=== PATIENT | female | born 1945 | race Caucasian/White ===

== ENCOUNTER 2020-07-26 09:12 | Emergency (ER) | payer OTHER, MEDICARE ==
[~2020-07-26] VITALS: Ht 157.5 cm; Wt 59.0 kg
[2020-07-26] MEDS ORDERED: CALCIUM CIT 311 EACH (10:34)
[2020-07-26] MEDS ORDERED: ATOR20 PO (10:34)
[2020-07-26] MEDS ORDERED: BUPR75 PO (10:35)
[2020-07-26] MEDS ORDERED: METO25 PO (10:35)
== END 2020-07-26 11:33 | disposition home or self-care (01) ==
LOC: EDBD 09:12 → ER 09:12
DX: Z00.00 Encounter for general adult medical examination without abnormal findings (principal)
CPT/HCPCS: 99284

== ENCOUNTER 2020-10-05 01:54 | Day surgery (SDC) | payer OTHER ==
[~2020-10-05 01:54] MED LIST: ATOR20 PO; BUPR75 PO; CALCIUM CIT 311 EACH; METO25 PO
== END 2020-10-05 18:12 | disposition home or self-care (01) ==
LOC: ATC 01:54
DX: U07.1 COVID-19 (principal); I10 Essential (primary) hypertension; F03.90 Unspecified dementia, unspecified severity, without behavioral disturbance, psychotic disturbance, mood disturbance, and anxiety; E78.49 Other hyperlipidemia; Z87.891 Personal history of nicotine dependence; Z88.2 Allergy status to sulfonamides; Z88.8 Allergy status to other drugs, medicaments and biological substances
CPT/HCPCS: 96365; Q0243

== ENCOUNTER 2021-01-09 07:57 | Emergency (ER) | payer OTHER ==
[~2021-01-09] VITALS: Ht 154.9 cm; Wt 59.0 kg
[2021-01-09 09:05] LABS: Source, Urine Clean Catch
[2021-01-09 09:07] LABS: BASOPHILS ABSOLUTE AUTO 0.05 K/mm3 (0.00-0.23); BASOPHILS PERCENT AUTO 1 % (0-2); EOSINOPHILS ABSOLUTE AUTO 0.11 K/mm3 (0.00-0.68); EOSINOPHILS PERCENT AUTO 2 % (0-6); Hematocrit 36.5 % (33.0-51.0); Hemoglobin 11.6 g/dL (11.5-16.0); IMMATURE GRAN ABSOLUTE AUTO 0.02 K/mm3 (0.00-0.10); IMMATURE GRAN PERCENT AUTO 0 % (0-1); LYMPHOCYTES ABSOLUTE AUTO 1.54 K/mm3 (0.84-5.20); LYMPHOCYTES PERCENT AUTO 22 % (21-46); MONOCYTES ABSOLUTE AUTO 0.54 K/mm3 (0.16-1.47); MONOCYTES PERCENT AUTO 8 % (4-13); Mean Corpuscular HGB 29.7 pg (26.0-34.0); Mean Corpuscular HGB Conc 31.8 g/dL (31.5-36.5); Mean Corpuscular Volume 94 fL (80-100); Mean Platelet Volume 10.2 fL (9.1-12.4); NEUTROPHILS ABSOLUTE AUTO 4.69 K/mm3 (1.96-9.15); NEUTROPHILS PERCENT AUTO 67 % (41-73); Platelet Count 162 K/mm3 (150-400); RDW Standard Deviation 44.5 fL (35.1-46.3); White Blood Cell Count 6.95 K/mm3 (4.00-11.30)
[2021-01-09 09:18] LABS: Appearance, Urine Clear (Clear); Bilirubin, Urine Neg (Neg); Blood, Urine 3+ (Neg); Color, Urine Yellow (P-Yellow); Glucose Qualitative, Urine Neg (Neg); Ketones, Urine Neg (Neg); Leukocyte Esterase, Urine 1+ (Neg); Nitrite, Urine Neg (Neg); Protein, Urine Neg (Neg); Urobilinogen, Urine NORM (Normal)
[2021-01-09 09:33] LABS: Alanine Aminotransfer (ALT/SGP 23 U/L (12-78); Albumin, Blood 2.9 g/dL (3.4-5.0); Albumin/Globulin Ratio 0.8 (0.8-1.8); Alk Phos 77 U/L (50-136); Anion Gap 3 mmol/L (6-16); Aspartate Aminotrans (AST/SGOT 23 U/L (12-37); Bilirubin, Total 0.5 mg/dL (0.1-1.0); Blood Urea Nitrogen 16 mg/dL (8-24); Bun/Creatinine Ratio 15.4 (12.0-20.0); CO2, Blood 29 mmol/L (21-32); Calcium, Blood 8.6 mg/dL (8.5-10.1); Chloride, Blood 106 mmol/L (98-108); Creatinine, Blood 1.04 mg/dL (0.40-1.00); Ethanol (Alcohol), Blood, Med <3 mg/dL; Globulin, Blood 3.6 g/dL (2.2-4.0); Glomerular Filtration Rate 51 (60-); Glucose, Blood 92 mg/dL (70-99); Potassium, Blood 4.5 mmol/L (3.5-5.5); Salicylate <1.7 mg/dL (2.8-20.0); Sodium, Blood 138 mmol/L (136-145); Total Protein, Blood 6.5 g/dL (6.4-8.2)
[2021-01-09 09:34] LABS: Red Blood Cells, Urine 0-2 /hpf (0-2)
[2021-01-09 09:35] LABS: Bacteria Many /hpf; Squamous Epithelial Cells Rare /hpf (Few)
[2021-01-09 09:36] LABS: U Amphetamine Screen Not Detected; U Barbituate Screen Not Detected; U Benzodiazapine Screen Not Detected; U Buprenorphine Screen Not Detected; U Cannabinoids Screen Not Detected; U Cocaine Screen Not Detected; U Methadone Screen Not Detected; U Methamphetamine Screen Not Detected; U Opiates Screen Not Detected; U Oxycodone Screen Not Detected; U Phencyclidine Screen Not Detected; U Propoxyphene Screen Not Detected
[2021-01-09 09:45] LABS: Acetaminophen, Random <2.0 ug/mL (10.0-30.0)
[2021-01-09] MEDS ORDERED: TRAZ50 PO ×2 (14:39→14:41)
== END 2021-01-09 14:50 | disposition home or self-care (01) ==
LOC: ER 07:57
PROVIDERS: Physician Assistant
DX: R45.1 Restlessness and agitation (principal); I10 Essential (primary) hypertension; F17.200 Nicotine dependence, unspecified, uncomplicated; Z88.8 Allergy status to other drugs, medicaments and biological substances; Z79.899 Other long term (current) drug therapy
CPT/HCPCS: 36415; 80053; 81001; 81025; 85025; 87077; 87086; 87186; 99284; A9270; G0480

== ENCOUNTER 2021-01-16 18:32 | Emergency (ER) | payer OTHER ==
[~2021-01-16] VITALS: Ht 157.5 cm; Wt 60.8 kg
[~2021-01-16 18:32] MED LIST changes: +CEFD300 PO; +TRAZ50 PO
[2021-01-16] MEDS ORDERED: MELATONIN5 M1 PO (19:43)
== END 2021-01-16 23:39 | disposition home or self-care (01) ==
LOC: ER 18:32
DX: Z00.8 Encounter for other general examination (principal); Z88.8 Allergy status to other drugs, medicaments and biological substances; Z79.899 Other long term (current) drug therapy
CPT/HCPCS: 99282

== ENCOUNTER 2021-01-23 04:36 | Inpatient (IN) | payer OTHER ==
[~2021-01-23] VITALS: Ht 160 cm; Wt 60.3 kg
[~2021-01-23 04:36] MED LIST changes: +MELATONIN5 M1 PO
[2021-01-23 05:13] LABS: BASOPHILS ABSOLUTE AUTO 0.02 K/mm3 (0.00-0.23); BASOPHILS PERCENT AUTO 0 % (0-2); EOSINOPHILS ABSOLUTE AUTO 0.01 K/mm3 (0.00-0.68); EOSINOPHILS PERCENT AUTO 0 % (0-6); Hematocrit 34.3 % (33.0-51.0); Hemoglobin 11.1 g/dL (11.5-16.0); IMMATURE GRAN ABSOLUTE AUTO 0.01 K/mm3 (0.00-0.10); IMMATURE GRAN PERCENT AUTO 0 % (0-1); LYMPHOCYTES ABSOLUTE AUTO 1.56 K/mm3 (0.84-5.20); LYMPHOCYTES PERCENT AUTO 24 % (21-46); MONOCYTES ABSOLUTE AUTO 0.26 K/mm3 (0.16-1.47); MONOCYTES PERCENT AUTO 4 % (4-13); Mean Corpuscular HGB 30.1 pg (26.0-34.0); Mean Corpuscular HGB Conc 32.4 g/dL (31.5-36.5); Mean Corpuscular Volume 93 fL (80-100); NEUTROPHILS ABSOLUTE AUTO 4.79 K/mm3 (1.96-9.15); NEUTROPHILS PERCENT AUTO 72 % (41-73); Platelet Count 155 K/mm3 (150-400); RDW Coefficient Variation 12.6 % (11.7-14.2); RDW Standard Deviation 43.7 fL (35.1-46.3); Red Blood Cell Count 3.69 M/mm3 (3.80-5.20); White Blood Cell Count 6.65 K/mm3 (4.00-11.30)
[2021-01-23 05:58] LABS: Alanine Aminotransfer (ALT/SGP 19 U/L (12-78); Albumin, Blood 2.8 g/dL (3.4-5.0); Albumin/Globulin Ratio 0.8 (0.8-1.8); Alk Phos 69 U/L (50-136); Anion Gap 10 mmol/L (6-16); Aspartate Aminotrans (AST/SGOT 29 U/L (12-37); Bilirubin, Total 0.7 mg/dL (0.1-1.0); Blood Urea Nitrogen 16 mg/dL (8-24); Bun/Creatinine Ratio 33.4 (12.0-20.0); CO2, Blood 22 mmol/L (21-32); Calcium, Blood 8.4 mg/dL (8.5-10.1); Chloride, Blood 104 mmol/L (98-108); Creatinine, Blood 0.48 mg/dL (0.40-1.00); Globulin, Blood 3.5 g/dL (2.2-4.0); Glomerular Filtration Rate >60 (60-); Glucose, Blood 157 mg/dL (70-99); Sodium, Blood 136 mmol/L (136-145); Total Protein, Blood 6.3 g/dL (6.4-8.2)
[2021-01-23] MEDS ORDERED: ASPI81CH PO (06:09)
[2021-01-23 09:14] LABS: Salicylate <1.7 mg/dL (2.8-20.0)
[2021-01-23 09:19] LABS: Acetaminophen, Random 540.5 ug/mL (10.0-30.0)
[2021-01-23 11:44] LABS: Influenza A, PCR NEGATIVE (NEGATIVE); Influenza B, PCR NEGATIVE (NEGATIVE); Resp Syncytial Virus, PCR NEGATIVE (NEGATIVE); SARS-Cov-2 (COVID-19) PCR, MMC NEGATIVE (NEGATIVE)
[2021-01-23 12:47] LABS: U Amphetamine Screen Not Detected; U Barbituate Screen Not Detected; U Benzodiazapine Screen Not Detected; U Buprenorphine Screen Not Detected; U Cannabinoids Screen Not Detected; U Cocaine Screen Not Detected; U Methadone Screen Not Detected; U Methamphetamine Screen Not Detected; U Opiates Screen Not Detected; U Oxycodone Screen Not Detected; U Phencyclidine Screen Not Detected; U Propoxyphene Screen Not Detected
--- NOTE | 2021-01-23 17:08 | NUR ---
PATIENT ADMIT TO PCU. ABLE TO STAND AND TRANSFER WITH ONE PERSON ASSIST. DENIES NUMBNESS/TINGLING. ABLE TO STATE NAME AND BIRTHDATE. STATES SHE IS IN "[facility]" AND UNSURE WHY. VERY CALM AND COOPERATIVE. BED ALARM AND CAMERA ON. TELE SHOWING SINUS GAIL WITH HR 47-50'S. DENIES SYMPTOMS OF DIZZINESS/LIGHTHEADED. DENIES CHEST PAIN/PRESSURE. BP STABLE. ON ROOM AIR SATING MID 90'S. DENIES SOB. LUNGS SOUNDING CLEAR. USING BSC WITH ONE PERSON ASSIST. CALLING TO USE RESTROOM. MODERATE SI PRECAUTIONS IN PLACE. ABLE TO MOVE SELF IN BED. ACETYLCYSTEINE, NS, POTASSIUM, AND MAG INFUSING. SPOKE WITH POISON CONTROL. GOAL TO KEEP K ABOVE 4.0 AND MAG ABOVE 2.0. POISON CONTROL WANTING EKG ONCE K AND MAG ARE DONE INFUSING. POISON CONTROL ALSO WANTING LABS FOR AST, ALT, ACETAMINOPHEN, AND INR DRAWN WHEN 2 HOURS OF CURRENT ACETYLCYSTEINE BAG IS LEFT. NPO AT THIS TIME. CALL LIGHT IN REACH. WILL CONTINUE TO MONITOR AND REPORT OFF.
--- NOTE | 2021-01-23 18:41 | NUR ---
UPDATE: NO ACUTE CHANGES. MAG INFUSED. PATIENT USING CALL LIGHT TO USE RESTROOM. BSC WITH 1 PERSON ASSIST. REMAINS ON RA. TELE REMAINS SINUS GAIL. OBSERVED PATIENT FLICKING LEFT WRIST AND HAND OVER AND OVER AGAIN, WHEN NO ONE IS IN ROOM. UPON QUESTIONING PATIENT STATES "IT IS HOW SHE COUNTS HER STEPS". DENIES PAIN/DIZZINESS. CALL LIGHT IN REACH.
--- NOTE | 2021-01-23 22:58 | NUR ---
PT CONTINUES TO GET OOB WITHOUT ASSIST WITH MULTIPLE IV LINES, CONFUSED AND THINKS SHE IS HOME. REORIENTED MULTIPLE TIMES BUT PT HAS NO RETENTION. BED ALARMING EVERY FIVE MINUTES AND PT OOB BEFORE REMOTE MONITOR CAN CALL FLOOR STAFF. CALL TO HOSPITALIST TO REQUEST VEST RESTRAINT, BUT AFTER IT WAS APPLIED PT NOTED TO BE STRUGGLING DOWN TO FOOT OF BED WITH RESTRAINT UP AROUND HER ARMPIT AND NECK, NAUSEAOUS AND HAD SMALL EMESIS. VEST RESTRAINT REMOVED. REQUESTED SITTER FROM CN PT IS AT HIGH RISK FOR SELF INJURY DUE TO INABILITY TO FOLLOW SAFETY GUIDELINES. CALISTA RAINES
[2021-01-23 23:25] LABS: Acetaminophen, Random 82.2 ug/mL (10.0-30.0); Alanine Aminotransfer (ALT/SGP 31 U/L (12-78); Albumin, Blood 2.9 g/dL (3.4-5.0); Albumin/Globulin Ratio 0.8 (0.8-1.8); Alk Phos 70 U/L (50-136); Anion Gap 12 mmol/L (6-16); Aspartate Aminotrans (AST/SGOT 33 U/L (12-37); Bilirubin, Total 0.9 mg/dL (0.1-1.0); Blood Urea Nitrogen 11 mg/dL (8-24); Bun/Creatinine Ratio 14.3 (12.0-20.0); CO2, Blood 19 mmol/L (21-32); Calcium, Blood 7.5 mg/dL (8.5-10.1); Chloride, Blood 106 mmol/L (98-108); Creatinine, Blood 0.77 mg/dL (0.40-1.00); Globulin, Blood 3.6 g/dL (2.2-4.0); Glomerular Filtration Rate >60 (60-); Glucose, Blood 146 mg/dL (70-99); Potassium, Blood 3.3 mmol/L (3.5-5.5); Sodium, Blood 137 mmol/L (136-145); Total Protein, Blood 6.5 g/dL (6.4-8.2)
--- NOTE | 2021-01-24 05:23 | NUR ---
SHIFT SUMMARY: PT RESTLESS ALL NIGHT, SITTER AT BEDSIDE PT CONTINUOUSLY TRYING TO GET OOB, CONFUSED AND DISORIENTED, REDIRECTS EASILY BUT RETENTION VERY SHORT. CONT BOWEL AND BLADDER, UP TO BSC TO VOID, + BM, VSS, TELE SHOWS SB/SR WITH STABLE VS. DENIES SUICIAL THOUGHTS, FOLLOW SIMPLE ONE STEP COMMANDS BUT UNABLE TO COMPLETE/COMPREHEND MORE COMPLEX DIRECTION. ACETYLCYSTEINE IV CONTINUES, AM LABS PENDING BUT ACETAMINIPHEN LEVEL TRENDING DOWN. PT HAS HAD 2 SMALL EMESIS OF BROWN GASTRIC CONTENTS, RELIEVED BY IV ZOFRAN. TELE SHOWS SR. SPOKE WITH POISON CONTROL TWICE THIS SHIFT AND UPDATED ON PT CONDITION. BED LOCKED AND LOW, CALL GROVES IN REACH, SITTER AT BEDSIDE FOR PT SAFETY. CALISTA RAINES
[2021-01-24 05:30] LABS: Hematocrit 36.4 % (33.0-51.0); Hemoglobin 12.4 g/dL (11.5-16.0); Mean Corpuscular HGB Conc 34.1 g/dL (31.5-36.5); Mean Corpuscular Volume 88 fL (80-100); Mean Platelet Volume 11.1 fL (9.1-12.4); Platelet Count 142 K/mm3 (150-400); RDW Coefficient Variation 12.5 % (11.7-14.2); RDW Standard Deviation 40.5 fL (35.1-46.3); Red Blood Cell Count 4.13 M/mm3 (3.80-5.20); White Blood Cell Count 15.76 K/mm3 (4.00-11.30)
[2021-01-24 05:47] LABS: Alanine Aminotransfer (ALT/SGP 33 U/L (12-78); Albumin, Blood 2.8 g/dL (3.4-5.0); Albumin/Globulin Ratio 0.8 (0.8-1.8); Alk Phos 67 U/L (50-136); Anion Gap 10 mmol/L (6-16); Aspartate Aminotrans (AST/SGOT 35 U/L (12-37); Blood Urea Nitrogen 9 mg/dL (8-24); Bun/Creatinine Ratio 11.4 (12.0-20.0); CO2, Blood 20 mmol/L (21-32); Calcium, Blood 7.7 mg/dL (8.5-10.1); Chloride, Blood 105 mmol/L (98-108); Creatinine, Blood 0.79 mg/dL (0.40-1.00); Globulin, Blood 3.6 g/dL (2.2-4.0); Glomerular Filtration Rate >60 (60-); Glucose, Blood 132 mg/dL (70-99); Potassium, Blood 3.2 mmol/L (3.5-5.5); Sodium, Blood 135 mmol/L (136-145); Total Protein, Blood 6.4 g/dL (6.4-8.2)
--- NOTE | 2021-01-24 12:09 | NUR ---
ATTEMPTED TO OBTAIN URINE SAMPLE VIA STRAIGHT CATH, PER DR. GARG OKAY. WHEN TRYING TO OBTAIN PATIENT URINATED PRIOR TO INSERTING CATH. WILL ATTEMPT AGAIN IN A LITTLE BIT. TEMP 100.8 AT THIS TIME. THIS RN NOTICED REDNESS/WARM ON BACK OF LEFT ARM THIS AM. DR. GARG NOTIFIED AND IN TO ASSESS. NEW ORDERS FOR ANTIBIOTICS. MAG, POTASSIUM, NS AND ACETYLCYSTEINE INFUSING AT THIS TIME. SANJEEV VEST IN PLACE. CAMERA AND BED ALARM ON. WILL CONTINUE TO MONITOR.
[2021-01-24 13:55] LABS: International Normalized Ratio 1.31; Prothrombin Time Results 13.5 Sec (9.7-11.5)
--- NOTE | 2021-01-24 14:14 | NUR ---
PATIENT ONLY ALERT TO SELF. NOT ABLE TO ANSWER ANY ORIENTING QUESTIONS CORRECTLY. DENIES NUMBNESS/TINGLING. ABLE TO MOVE ALL EXTREMITIES. AT TIMES TRYING TO GET OUT OF BED. BED ALARM AND CAMERA ON. SANJEEV VEST IN PLACE. TURNING SELF IN BED. USING BEDSIDE COMMODE WITH 1-2 PERSON ASSIST. ATTENDS IN PLACE FOR INCONTINENT EPISODES. DENIES ABDOMINAL PAIN. ON ROOM AIR. TELE SHOWING SINUS RHYTHM WITH HR 80-90'S. DENIES CHEST PAIN/PRESSURE. BP STABLE. TEMP ELEVATED THIS AFTERNOON. BLANKETS AND TEMP IN ROOM TURNED DOWN. ACETYLCYSTEINE AND NS INFUSING IN LEFT IV. POTASSIUM, MAG AND ANCEF INFUSED IN LEFT AC IV. LEFT TRICEP REGION NOTED TO BE WARM AND RED THIS AM. DR. BRYANTRATE IN TO ASSESS. PATIENT EATING LUNCH AT THIS TIME. NEEDING ASSISTANCE WITH EATING. TOLERTING FOOD WELL. MOTTLING NOTED TO BILATERAL KNEES AND THIGH REGION. PATIENT DENIES PAINS OVERALL. UPDATING POISON CONTROL NEEDED. PLAN FOR EKG WHEN POTASSIUM IS DONE INFUSING PER POISON CONTROL RECOMMENDATIONS. CHEST XRAY TODAY. CALL LIGHT IN REACH. WILL CONTINUE TO MONITOR.
[2021-01-24 14:53] LABS: Source, Urine Clean Catch
[2021-01-24 14:57] LABS: Appearance, Urine Clear (Clear); Bilirubin, Urine Neg (Neg); Blood, Urine 5+ (Neg); Glucose Qualitative, Urine Neg (Neg); Ketones, Urine 2+ (Neg); Leukocyte Esterase, Urine Neg (Neg); Nitrite, Urine Neg (Neg); Protein, Urine 3+ (Neg); Specific Gravity, Urine 1.015 (1.003-1.022); Urobilinogen, Urine NORM (Normal)
[2021-01-24 15:16] LABS: Color, Urine Pale Yellow (P-Yellow)
[2021-01-24 15:18] LABS: Bacteria Mod /hpf; Squamous Epithelial Cells Rare /hpf (Few); White Blood Cells, Urine 0-2 /hpf (0-5)
[2021-01-24 15:20] LABS: Granular Casts Rare /lpf (0)
--- NOTE | 2021-01-24 17:44 | NUR ---
SHIFT SUMMARY: PATIENT REMAINS ONLY ALERT TO SELF. ROOM AIR. TELE SHOWING SINUS RHYTHM WITH HR 90'S. EKG DONE POST POTASSIUM AND MAG INFUSION AND IN CHART. LEFT ARM REMAINS RED AND WARM. NO SIGNS OF SWELLING. LEFT SIDED IV REMAINS PATENT AND BLOOD RETURN WITH FLUSHING. ANCEF INFUSING AT THIS TIME. BED ALARM, CAMERA AND SANJEEV VEST ON. [facility]ATING [facility] SO[facility], TOLERATING WELL. NO EMISIS. DENIES ANY PAINS. NEEDS ASSISTANCE WITH EATING, JUST PUSHES FOOD AROUND WITH UTENSILS. EASILY DISTRACTED. FOLLOWS COMMANDS. AT TIMES HARD TO REDIRECT. URINE SAMPLE OBTAINED VIA STRAIGHT CATH. DENTURES IN PLACE. NOT USING CALL LIGHT. DID NOT SLEEP TODAY. NS AND NAC CONTINUES TO INFUSE. MOTTLING NOTED TO BILATERAL KNEE/THIGHS. WILL CONTINUE TO MONITOR AND REPORT OFF TO ONCOMING RN.
[2021-01-24 17:51] LABS: Alanine Aminotransfer (ALT/SGP 30 U/L (12-78); Albumin, Blood 2.8 g/dL (3.4-5.0); Albumin/Globulin Ratio 0.8 (0.8-1.8); Alk Phos 66 U/L (50-136); Anion Gap 10 mmol/L (6-16); Aspartate Aminotrans (AST/SGOT 42 U/L (12-37); Bilirubin, Total 0.8 mg/dL (0.1-1.0); Blood Urea Nitrogen 6 mg/dL (8-24); Bun/Creatinine Ratio 8.2 (12.0-20.0); CO2, Blood 18 mmol/L (21-32); Calcium, Blood 7.6 mg/dL (8.5-10.1); Chloride, Blood 106 mmol/L (98-108); Creatinine, Blood 0.73 mg/dL (0.40-1.00); Globulin, Blood 3.4 g/dL (2.2-4.0); Glomerular Filtration Rate >60 (60-); Glucose, Blood 143 mg/dL (70-99); Potassium, Blood 3.4 mmol/L (3.5-5.5); Sodium, Blood 134 mmol/L (136-145); Total Protein, Blood 6.2 g/dL (6.4-8.2)
--- NOTE | 2021-01-24 18:18 | NUR ---
UPDATE: RIGHT ARM STARTING TO LOOK RED AND WARM. TEMP COMING DOWN. DR. BRYANTRATE NOTIFIED. PLANS TO COME AND LOOK AT ARMS. NEW ORDERS FOR BLOOD CULTURES AND URIC ACID. POWERGLIDE PLACED IN RIGHT UPPER ARM.
--- NOTE | 2021-01-24 20:00 | NUR ---
PT REMAINS VERY RESTLESS, REDIRECTS ONLY FOR SHORT PERIOD. REMOTE MONITORING CONTINUES, BED ALARM ACTIVATED, SANJEEV VEST IN USE PT AT HIGH RISK FOR FALLS DUE TO INABILITY TO FOLLOW SAFETY GUIDELINES. LEFT UPPER ARM REMAINS RED WITH ERYTHEMA, PT DENIES PAIN WITH TOUCH, RIGHT ELBOW ALSO RED, PER DAY RN, AWARE, WELL MOTTLING OF BILAT LE FROM KNEE AREA UP TO THIGH. PT INCONT URINE BUT TRANSFERED TO BSC, AND VOIDED LARGE AMOUNT OF URINE. WILL CONTINUE TO MONITOR. LOW GRADE TEMP 100.O CALISTA RAINES
[2021-01-25 00:43] LABS: Alanine Aminotransfer (ALT/SGP 33 U/L (12-78); Albumin, Blood 2.9 g/dL (3.4-5.0); Albumin/Globulin Ratio 0.9 (0.8-1.8); Alk Phos 71 U/L (50-136); Anion Gap 11 mmol/L (6-16); Aspartate Aminotrans (AST/SGOT 47 U/L (12-37); Bilirubin, Total 0.9 mg/dL (0.1-1.0); Blood Urea Nitrogen 7 mg/dL (8-24); Bun/Creatinine Ratio 9.9 (12.0-20.0); CO2, Blood 18 mmol/L (21-32); Calcium, Blood 8.2 mg/dL (8.5-10.1); Chloride, Blood 109 mmol/L (98-108); Creatinine, Blood 0.71 mg/dL (0.40-1.00); Globulin, Blood 3.3 g/dL (2.2-4.0); Glomerular Filtration Rate >60 (60-); Glucose, Blood 181 mg/dL (70-99); Potassium, Blood 4.2 mmol/L (3.5-5.5); Sodium, Blood 138 mmol/L (136-145); Total Protein, Blood 6.2 g/dL (6.4-8.2)
--- NOTE | 2021-01-25 01:28 | NUR ---
[address] RAMOS RE: PT'S INCREASING AGITATION, HR SUSTAINED 120'S, INCREASED BP'S, GIVEN PRN HYDRALIZINE. ALSO UPDATED ON INCREASING REDNESS TO LEFT AND NOW RIGHT UPPER ARM, LE MOTTLING. ORDERS REC'D. WILL CONTINUE TO MONITOR. CALISTA RIANES
[2021-01-25 05:45] LABS: BASOPHILS ABSOLUTE AUTO 0.01 K/mm3 (0.00-0.23); BASOPHILS PERCENT AUTO 0 % (0-2); EOSINOPHILS PERCENT AUTO 0 % (0-6); Hematocrit 36.5 % (33.0-51.0); Hemoglobin 12.5 g/dL (11.5-16.0); IMMATURE GRAN ABSOLUTE AUTO 0.03 K/mm3 (0.00-0.10); IMMATURE GRAN PERCENT AUTO 0 % (0-1); LYMPHOCYTES PERCENT AUTO 8 % (21-46); MONOCYTES ABSOLUTE AUTO 0.41 K/mm3 (0.16-1.47); MONOCYTES PERCENT AUTO 4 % (4-13); Mean Corpuscular HGB Conc 34.2 g/dL (31.5-36.5); Mean Corpuscular Volume 88 fL (80-100); Mean Platelet Volume 11.3 fL (9.1-12.4); NEUTROPHILS PERCENT AUTO 87 % (41-73); Platelet Count 125 K/mm3 (150-400); RDW Coefficient Variation 12.8 % (11.7-14.2); RDW Standard Deviation 41.1 fL (35.1-46.3); Red Blood Cell Count 4.16 M/mm3 (3.80-5.20); White Blood Cell Count 9.55 K/mm3 (4.00-11.30)
--- NOTE | 2021-01-25 05:58 | NUR ---
SHIFT SUMMARY: PT HAD RESTLESS NIGHT WITH AGITATION AND CONFUSION, CONSTANTLY TRYING TO GET OOB, PULL AT LINES AND IS UNABLE TO FOLLOW SAFETY GUIDELINES, TELE SHOWS ST WITH RATES UP TO 130'S WITH ACTIVITY OR AGITATION. PT REMAINS PLEASANT AND COOPERATIVE BUT NEEDS CONSTANT REDIRECTION. RECIEVED PRN HYDRALAZINE ONCE WITH GOOD EFFECT. PT FINALLY ABLE TO REST AFTER ONE TIME DOSE OF HALDOL, AWOKE AND UP WITH ASSIST TO BSC. PT NOW MUCH MORE COGNIZANT, ABLE DETERMINE WHERE SHE IS AND MONTH/YEAR. ASSISTED BACK TO BED AND IMMEDIATLEY WENT BACK TO SLEEP. T-MAX 100, HR NOW BACK IN THE 80'S. ACETYLCYSTEINE DRIP CONTINUES, SPOKE WITH POISON CONTROL ONCE DURING SHIFT AND MORNING LABS ORDERED PER THEIR RECOMMENDATION. PT CURRENTLY RESTING COMFORTABLY, BED LOCKED AND LOW, CALL GROVES IN REACH, REMOTE MONITORING CONTINUES WELL USE OF SANJEEV VEST FOR PT SAFETY. CALISTA RAINES
[2021-01-25 06:39] LABS: Acetaminophen, Random 2.7 ug/mL (10.0-30.0); Alanine Aminotransfer (ALT/SGP 33 U/L (12-78); Albumin, Blood 2.7 g/dL (3.4-5.0); Albumin/Globulin Ratio 0.8 (0.8-1.8); Alk Phos 70 U/L (50-136); Anion Gap 13 mmol/L (6-16); Aspartate Aminotrans (AST/SGOT 54 U/L (12-37); Bilirubin, Total 0.8 mg/dL (0.1-1.0); Blood Urea Nitrogen 6 mg/dL (8-24); CO2, Blood 18 mmol/L (21-32); Calcium, Blood 8.4 mg/dL (8.5-10.1); Chloride, Blood 109 mmol/L (98-108); Creatinine, Blood 0.75 mg/dL (0.40-1.00); Globulin, Blood 3.3 g/dL (2.2-4.0); Glomerular Filtration Rate >60 (60-); Glucose, Blood 153 mg/dL (70-99); Potassium, Blood 3.5 mmol/L (3.5-5.5); Sodium, Blood 140 mmol/L (136-145)
[2021-01-25 06:45] LABS: Phosphorus, Blood 0.8 mg/dL (2.5-4.9)
[2021-01-25 11:36] LABS: International Normalized Ratio 1.21; Prothrombin Time Results 12.5 Sec (9.7-11.5)
[2021-01-25 11:46] LABS: Acetaminophen, Random 4.5 ug/mL (10.0-30.0); Alanine Aminotransfer (ALT/SGP 31 U/L (12-78); Albumin, Blood 2.3 g/dL (3.4-5.0); Albumin/Globulin Ratio 0.7 (0.8-1.8); Alk Phos 59 U/L (50-136); Anion Gap 9 mmol/L (6-16); Aspartate Aminotrans (AST/SGOT 48 U/L (12-37); Bilirubin, Total 0.4 mg/dL (0.1-1.0); Blood Urea Nitrogen 7 mg/dL (8-24); CO2, Blood 22 mmol/L (21-32); Calcium, Blood 7.8 mg/dL (8.5-10.1); Chloride, Blood 110 mmol/L (98-108); Creatinine, Blood 0.78 mg/dL (0.40-1.00); Globulin, Blood 3.1 g/dL (2.2-4.0); Glomerular Filtration Rate >60 (60-); Glucose, Blood 190 mg/dL (70-99); Potassium, Blood 3.8 mmol/L (3.5-5.5); Sodium, Blood 141 mmol/L (136-145); Total Protein, Blood 5.4 g/dL (6.4-8.2)
--- NOTE | 2021-01-25 18:56 | NUR ---
SHIFT SUMMARY PT A&Ox3; CALM AND COOPERATIVE WITH CARE. FORGETFUL AT TIMES AND INTERMITTENT CONFUSION. PT UP IN CHAIR FOR MAJORITY OF SHIFT, 1 PERSON ASSIST. PT DE PAIN, CHEST PAIN, SOB, NAUSEA AND DIZZINESS. PT APPEARS TO BE SLEEPING T/O SHIFT. IV K-PHOS AND ANTIBITOICS DURING SHIFT. VSS. NO OTHER ACUTE CHANGES NOTED. WILL CONTINUE TO MONITOR UNITL REPORT GIVEN TO ONCOMING RN.
--- NOTE | 2021-01-25 21:49 | NUR ---
POISON CONTROL THIS RN REACHED OUT TO POISON CONTROL TO CONFIRM THEY HAVE SIGNED OFF ON CASE. POISON CONTROL CONFIRMED D/T PT'S AST/ALT LABS DECREASING AND ACETAMINEPHIN LEVEL LESS THAN 5 IS GROUNDS FOR POISON CONTROL TO CLOSE CASE, NO FURTHER LABS OR MEDICATION REQUIRED.
[2021-01-26 05:33] LABS: BASOPHILS ABSOLUTE AUTO 0.04 K/mm3 (0.00-0.23); BASOPHILS PERCENT AUTO 0 % (0-2); EOSINOPHILS ABSOLUTE AUTO 0.04 K/mm3 (0.00-0.68); EOSINOPHILS PERCENT AUTO 0 % (0-6); Hematocrit 30.4 % (33.0-51.0); Hemoglobin 10.3 g/dL (11.5-16.0); IMMATURE GRAN ABSOLUTE AUTO 0.03 K/mm3 (0.00-0.10); IMMATURE GRAN PERCENT AUTO 0 % (0-1); LYMPHOCYTES ABSOLUTE AUTO 2.24 K/mm3 (0.84-5.20); LYMPHOCYTES PERCENT AUTO 20 % (21-46); MONOCYTES ABSOLUTE AUTO 0.67 K/mm3 (0.16-1.47); MONOCYTES PERCENT AUTO 6 % (4-13); Mean Corpuscular HGB 30.2 pg (26.0-34.0); Mean Corpuscular HGB Conc 33.9 g/dL (31.5-36.5); Mean Corpuscular Volume 89 fL (80-100); Mean Platelet Volume 11.2 fL (9.1-12.4); NEUTROPHILS ABSOLUTE AUTO 8.12 K/mm3 (1.96-9.15); NEUTROPHILS PERCENT AUTO 73 % (41-73); Platelet Count 112 K/mm3 (150-400); RDW Coefficient Variation 13.3 % (11.7-14.2); RDW Standard Deviation 43.4 fL (35.1-46.3); Red Blood Cell Count 3.41 M/mm3 (3.80-5.20); White Blood Cell Count 11.14 K/mm3 (4.00-11.30)
[2021-01-26 05:46] LABS: International Normalized Ratio 1.03; Prothrombin Time Results 10.8 Sec (9.7-11.5)
--- NOTE | 2021-01-26 06:14 | NUR ---
SHIFT SUMMARY SLEPT SOUNDLY T/O NIGHT. NO ACUTE CHANGES THIS SHIFT. AOX3-SELF, PLACE, DATE. UNAWARE SITUATION, STATES SHE DOESNT REMEMBER TAKING TYLENOL. OCCASIONAL FORGETFULNESS & CONFUSION. VSS. TELE NSR. DENIES PAIN, N/V OR SOB. PLAN TO DC HOME c TODAY. CALL LIGHT & BED ALARM IN PLACE FOR SAFETY.
[2021-01-26 06:20] LABS: Alanine Aminotransfer (ALT/SGP 25 U/L (12-78); Albumin, Blood 2.2 g/dL (3.4-5.0); Albumin/Globulin Ratio 0.8 (0.8-1.8); Alk Phos 52 U/L (50-136); Anion Gap 6 mmol/L (6-16); Aspartate Aminotrans (AST/SGOT 35 U/L (12-37); Bilirubin, Total 0.7 mg/dL (0.1-1.0); Blood Urea Nitrogen 6 mg/dL (8-24); CO2, Blood 23 mmol/L (21-32); Calcium, Blood 7.7 mg/dL (8.5-10.1); Chloride, Blood 117 mmol/L (98-108); Creatinine, Blood 0.75 mg/dL (0.40-1.00); Globulin, Blood 2.7 g/dL (2.2-4.0); Glomerular Filtration Rate >60 (60-); Glucose, Blood 101 mg/dL (70-99); Magnesium, Blood 1.9 mg/dL (1.6-2.4); Phosphorus, Blood 1.7 mg/dL (2.5-4.9); Potassium, Blood 3.8 mmol/L (3.5-5.5); Sodium, Blood 146 mmol/L (136-145); Total Protein, Blood 4.9 g/dL (6.4-8.2)
[2021-01-26] MEDS ORDERED: CEPH500 PO (10:50)
[2021-01-26] MEDS ORDERED: BISA10S PR (10:51)
[2021-01-26] MEDS ORDERED: Prednisone50 MG PO (10:52)
[2021-01-26] MEDS ORDERED: K-Phos Origina500 MG PO (10:53)
[2021-01-26] MEDS ORDERED: ACIDOPHILUS1 EAC3 PO (10:53)
--- NOTE | 2021-01-26 18:39 | NUR ---
DISCHARGE SUMMARY PT A&Ox3; FORGETFUL WITH INTERMITTENT CONFUSION. UP IN CHAIR WITH 1PERSON ASSIST. PT DENIES PAIN, CHEST PAIN, SOB, NAUSEA AND DIZZINESS. SI HOLD DISCONTINUED LAST NIGHT. VSS. NO OTHER ACUTE CHANGES NOTED. EDUCATED PT AND SPOUSE ON DISCHARGE INSTRUCTIONS, FOLLOW UP APPOINTMENT AND MEDICATIONS. PRESCRIPTION FA[facility]ED TO [facility]. PT LEFT ROOM VIA WHEELCHAIR AT 1229.
== END 2021-01-26 12:29 | disposition home health service (06) | DRG 917 ==
LOC: ER 04:36 → PCU 10:36 → ENPENDDIS 01-26 09:17 → PCU 01-26 12:29
PROVIDERS: Internal Medicine; Student in an Organized Health Care Education/Training Program; ADMIT Family Medicine
PROC: 5A09357 Assistance with Respiratory Ventilation, Less than 24 Consecutive Hours, Continuous Positive Airway Pressure (ICD-10-PCS; principal; 2021-01-23)
DX: T39.1X2A Poisoning by 4-Aminophenol derivatives, intentional self-harm, initial encounter (principal); G92.8 Other toxic encephalopathy; E87.2 Acidosis; L03.114 Cellulitis of left upper limb; F32.A Depression, unspecified; F03.90 Unspecified dementia, unspecified severity, without behavioral disturbance, psychotic disturbance, mood disturbance, and anxiety; E78.5 Hyperlipidemia, unspecified; I10 Essential (primary) hypertension; F43.25 Adjustment disorder with mixed disturbance of emotions and conduct; R00.1 Bradycardia, unspecified; Z20.822 Contact with and (suspected) exposure to COVID-19; G47.00 Insomnia, unspecified; M81.0 Age-related osteoporosis without current pathological fracture; Z91.51 Personal history of suicidal behavior; Z88.2 Allergy status to sulfonamides; Z88.8 Allergy status to other drugs, medicaments and biological substances; Z79.82 Long term (current) use of aspirin; Z79.899 Other long term (current) drug therapy
CPT/HCPCS: 0241U; 36415; 70450; 71045; 80053; 81001; 83605; 83735; 84100; 84132; 84145; 84550; 85025; 85027; 85610; 87086; 93005; 93010; 96365; 96366; 96375; 99285-25; A9270; C1751; G0480; J0132; J0360; J0690; J1630; J1650; J2405; J2920; J3475; J3480; J7030; J7050; J7060; J7070

== ENCOUNTER 2023-11-28 14:08 | Emergency (ER) | payer OTHER ==
[~2023-11-28] VITALS: Ht 157.5 cm; Wt 54.4 kg
[~2023-11-28 14:08] MED LIST changes: +ACIDOPHILUS1 EAC3 PO; +ASPI81CH PO; +BISA10S PR; +CEPH500 PO; +K-Phos Origina500 MG PO; +Prednisone50 MG PO
[2023-11-28 16:46] LABS: BASOPHILS ABSOLUTE AUTO 0.03 K/mm3 (0.00-0.23); BASOPHILS PERCENT AUTO 0 % (0-2); EOSINOPHILS ABSOLUTE AUTO 0.01 K/mm3 (0.00-0.68); EOSINOPHILS PERCENT AUTO 0 % (0-6); Hematocrit 35.6 % (33.0-51.0); Hemoglobin 11.7 g/dL (11.5-16.0); IMMATURE GRAN ABSOLUTE AUTO 0.03 K/mm3 (0.00-0.10); IMMATURE GRAN PERCENT AUTO 0 % (0-1); LYMPHOCYTES ABSOLUTE AUTO 1.25 K/mm3 (0.84-5.20); LYMPHOCYTES PERCENT AUTO 15 % (21-46); MONOCYTES ABSOLUTE AUTO 0.45 K/mm3 (0.16-1.47); MONOCYTES PERCENT AUTO 5 % (4-13); Mean Corpuscular HGB 29.3 pg (26.0-34.0); Mean Corpuscular HGB Conc 32.9 g/dL (31.5-36.5); Mean Corpuscular Volume 89 fL (80-100); Mean Platelet Volume 10.3 fL (9.1-12.4); NEUTROPHILS ABSOLUTE AUTO 6.51 K/mm3 (1.96-9.15); NEUTROPHILS PERCENT AUTO 79 % (41-73); Platelet Count 201 K/mm3 (150-400); RDW Coefficient Variation 13.6 % (11.7-14.2); RDW Standard Deviation 44.7 fL (35.1-46.3); Red Blood Cell Count 3.99 M/mm3 (3.80-5.20); White Blood Cell Count 8.28 K/mm3 (4.00-11.30)
[2023-11-28 17:08] LABS: Albumin, Blood 3.8 g/dL (3.4-5.0); Albumin/Globulin Ratio 1.1 (0.8-1.8); Bilirubin, Total 0.8 mg/dL (0.1-1.0); Bun/Creatinine Ratio 32.7 (12.0-20.0); Calcium, Blood 9.4 mg/dL (8.5-10.1); Creatinine, Blood 1.07 mg/dL (0.40-1.00); Globulin, Blood 3.4 g/dL (2.2-4.0); Potassium, Blood 4.5 mmol/L (3.5-5.5); Total Protein, Blood 7.2 g/dL (6.4-8.2)
[2023-11-28 18:20] VITALS: BP 125/63
== END 2023-11-28 18:21 | disposition home or self-care (01) ==
LOC: ER 14:08
PROVIDERS: Student in an Organized Health Care Education/Training Program
DX: F03.90 Unspecified dementia, unspecified severity, without behavioral disturbance, psychotic disturbance, mood disturbance, and anxiety (principal); I10 Essential (primary) hypertension; E78.5 Hyperlipidemia, unspecified; Z88.2 Allergy status to sulfonamides; Z88.8 Allergy status to other drugs, medicaments and biological substances; Z79.899 Other long term (current) drug therapy; Z79.82 Long term (current) use of aspirin
CPT/HCPCS: 70450; 80053; 85025; 99285-25